=== PATIENT | male | born 2005 | race Caucasian/White ===

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

== ENCOUNTER 2025-07-22 09:00 | Emergency (ER) | payer BC, SELFPAY ==
[2025-07-22] VITALS (8 sets, daily range): BP systolic 97–127; BP diastolic 49–79; BMI 27.3
--- NOTE | 2025-07-22 09:16 | ED.GENMED ---
History of Present Illness
General
Chief Complaint: Seizure
Source: patient and ambulance crew
Exam Limitations: none
Time Seen by Provider: 07/22/25 09:01
Nursing documentation reviewed up to this point in time: agreed with
History of Present Illness
History of Present Illness:
Patient is a 19-year-old male with past medical history of absence seizures presents to the ER via EMS
Mom at bedside reports they heard a loud crash in the bathroom the patient was on the floor of the shower not responding. Mom reports dad and brother carried him into the bedroom.
Patient has a history of absence seizure's and usually will have episodes of staring for about 5 seconds. He last had a seizure in seventh grade he is now a freshman in college. Mom reports no history of grand mal tonic-clonic seizures.
Patient presents awake alert he remembers getting up to his alarm he remembers being in the shower but he does not recall anything after that. He remembers waking up in his bed with his dad and paramedics around him.
He complains of jaw pain and a fat left upper lip.
He admits to not taking his Depakote since he has been in college.
He does drink alcohol socially last drink yesterday. He denies any drug use.
Phy Exam
General Physical Exam
General Presentation: no apparent distress
General age: appears stated age
General Skin: warm and dry
General Habitus: normal
General Mental: alert
General Hydration: dry mucous membranes
ENT Exam
ENT Exam: neck supple, pharyngeal erythema and other (left upper lip swollen , ecchymosis positive abrasion on the inner upper aspect of the left upper lip; no lacerations to lip , no inner - oral lacerations; tender tooth #10; opens mouth fully
mildly tender to b/l mandible )
Eye Exam
Eye Exam: PERRL and EOMI
Eye Exam General: PERRL: bilateral and EOM intact: bilateral
Pupil Exam: Bilateral: round and reactive
Cardiovascular Exam
Cardiovascular Exam: regular rate/rhythm and no murmur
Pulmonary Exam
Pulmonary Exam: lungs clear and no respiratory distress
Neurological Exam
Neurological Exam: alert, oriented x3, no motor deficits and no sensory deficits
Musculoskeletal Exam
Musculoskeletal Exam: full ROM
Skin Exam
Skin Exam: normal color and warm/dry
Psychiatric Exam
Psychiatric Exam: normal mood/affect
Course
Orders/Labs/Results
Orders:
Orders
07/22/25 09:12
CT Cervical Spine W/o Iv Contr Urgent
Comment:
Reason For Exam: trauma
CT Facial Bones W/o Iv Contras Urgent
Comment:
Reason For Exam: trauma
CT Head W/o Iv Contrast Urgent
Comment:
Reason For Exam: trauma
07/22/25 09:13
0.9% Sodium Chloride 1000 ml [Nss] 1,000 ml IV BOLUS
07/22/25 09:26
Complete Blood Count/With Diff Urgent
Comprehensive Metabolic Panel Urgent
Depakane Urgent
07/22/25 10:30
Valproate Sodium [Depacon] 2,000 mg 0.9% Sodium Chloride 50 ml [Nss] 50 ml IV NOW
07/22/25 10:36
Ibuprofen [Motrin] 600 mg PO NOW STA
Abnormal Lab Results
07/22/25
09:26
Abs Immat Gran (auto) 0.4 H 10^3/uL
(0-0.05)
Absolute Monos (auto) 0.7 H 10^3/uL
(0.1-0.6)
Immature Gran % 4.1 H %
(0-0.5)
ALT 73 H U/L
(0-50)
Valproic Acid < 10.0 L ug/ml
(50.0-120.0)
07/22/25 09:26
07/22/25 09:26
Vital Signs
Initial and Last Documented VS:
Initial Vital Signs
Temp Pulse Resp BP Pulse Ox
98.2 F 98 30 127/79 95
07/22/25 09:02 07/22/25 09:02 07/22/25 09:02 07/22/25 09:02 07/22/25 09:02
Last Documented Vital Signs
Temp Pulse Resp BP Pulse Ox
98.2 F 70 25 127/73 98
07/22/25 09:02 07/22/25 14:38 07/22/25 14:38 07/22/25 14:38 07/22/25 14:00
Rotor Winder consulted with Physician
Rotor Winder consulted with physician?: Yes
Name of Physician Consulted: Noh
MDM/Problems Addressed
Differential Diagnosis Includes:
Not limited to seizure, intracranial hemorrhage facial/jaw fracture
MDM/Problems Addressed:
Patient is a 19-year-old male with history of absence seizures presents for evaluation. Patient fell in the shower not responding as parents describe. Likely seizure. Patient is prescribed Depakote however since he has been to college in the past
several months has not taken his medicine. Patient presents with a swollen left upper lip abrasions to his head. He complains of jaw pain. No oral interval lacerations. Patient presents awake alert remembers waking up to his alarm does not
remember anything else. He does admit to drinking alcohol last night. CT head facial bones and cervical spine all negative. Patient was given fluids here in the ER. Case discussed with ED physician. As discussed, patient was given IV loading
dose of Depakote. Patient has prescriptions for Depakote at home. Parents have been here with patient and mother has been in close contact with the nurse practitioner of neurology. She did contact her through the portal and she recommended that
he start Depakote
Back up again however on a lower dose than previously prescribed with increasing dosing.
she did send all instructions to mother.
She also reported the seizure to the department transportation.
Patient did not sleep. He is awake alert .he is up drinking fluids
will ambulate and DC home
Pt ambualted here in the ED very well stable for d/c home
Patient's neurologist at [facility] wrote him prescription for rescue medicine in addition they have a video call appointment in the beginning of August.
Chronic conditions affecting care:
absence seizure history
*Radiology
Radiology exam reviewed: radiology read reviewed
*Pulse Oximetry
SaO2: 95
Oxygen Mode of Delivery: Room air
Patient hypoxic: no
*Critical Care Note
Total Time (30-74mins, 75-104mins- exclusive of procedures): Not Applicable
ED Attending Note
-
Portions of this chart may have been created with voice recognition software.� Occasional wrong word or��sound alike� substitutions may have occurred due to the inherent limitations of voice recognition software.
Discharge Plan
Departure
Patient Disposition: Home (Routine Discharge)
Date of Disposition: 07/22/25
Time of Disposition: 14:59
Patient with high blood pressure during this ER visit?: No
Condition: Fair
Covid-19: Not Applicable
Discharge Problem:
Seizure, Dental injury
Instructions: Seizures, Adult (DC), Dental pain - ED (DC)
Prescriptions:
No Action
divalproex [Depakote] 500 mg Tablet,Delayed Release (Dr/Ec)
1,000 mg PO HS
ibuprofen 200 mg Capsule
400 mg PO Q6H
Referrals:
Tray Gamboa DO [Family Provider, Pediatrics]
Activity Restrictions/Additional Instructions:
Start Depakote tomorrow as recommended by your neurologist. no alcohol. You were sent a prescription for rescue medicine by your neurologist.
Stay well-hydrated. Follow-up with neurology as scheduled and return if any worsening of symptoms
Follow-up with family doctor in the next 2 to 3 days for reevaluation of symptoms as well as dentist for injured tooth.
Ice to the lip /face for the next 24 hours 20 minutes at a time several times a day.
Interventions
Interventions:
*General Assessment Last Done: 07/22/25 09:02
*Neglect/Abuse Screening Last Done: 07/22/25 09:02
*ED COVID-19 Vaccine History Last Done: 07/22/25 09:11
*ED Influenza Vaccine History Last Done: 07/22/25 09:11
[facility] Fall Risk Assessment Tool Last Done: 07/22/25 09:11
*Risk Screen - Suicide (C-SSRS) Last Done: 07/22/25 09:11
ED- Cardiac Assessment Last Done: 07/22/25 09:35
ED- Neurological Assessment Last Done: 07/22/25 09:35
ED- Pulmonary Assessment Last Done: 07/22/25 09:35
Discharge Date and Time
Print Language: HUNGARIAN
[2025-07-22] MEDS: NSS 1000 IV (09:41)
[2025-07-22 09:48] LABS: Hematocrit 44.9 % (39.0-52.0); Hemoglobin 15.8 g/dL (13.0-18.0); Mean Corp Hgb Conc. 35.2 g/dL (33.0-37.0); Mean Corpuscular Volume 80.3 fL (80.0-94.0); Nucleated Red Blood Cells % 0 % (-); Platelet Count 272 10^3/uL (130-400); Red Cell Dist. Width 11.5 % (11.5-14.5)
[2025-07-22 09:50] LABS: ALT (SGPT) 73 U/L (0-50); AST (SGOT) 49 U/L (17-59); Albumin 4.5 g/dl (3.5-5.0); Alkaline Phosphatase 59 U/L (38-126); Blood Urea Nitrogen 12 mg/dl (9-20); Calcium 9.5 mg/dl (8.4-10.2); Carbon Dioxide 26 mmol/L (22-30); Chloride 103 mmol/L (98-107); Estimated Creatinine Clearance > 125 ml/min; Glucose 92 mg/dl (70-99); Potassium 4.1 mmol/L (3.5-5.1); Sodium 138 mmol/L (135-145); Total Protein 8.1 g/dl (6.3-8.2); eGFR > 60.00
[2025-07-22 09:55] LABS: Depakane < 10.0 ug/ml (50.0-120.0)
--- NOTE | 2025-07-22 10:32 | EDRN ---
Pharmacist called to mix and send depakote at this time.
--- NOTE | 2025-07-22 10:33 | EDRN ---
Francia To TSO in w/ pt and brought pt some water to drink at this time.
[2025-07-22] MEDS: MOTRIN 600 MG PO (10:40)
[2025-07-22] MEDS: DEPACON 70 MG IV (10:53)
== END 2025-07-22 14:55 | disposition home or self-care (01) ==
LOC: EMR 09:00
PROVIDERS: Nurse Practitioner; EMERGENCY PHYSICIAN Emergency Medicine; FAMILY PHYSICIAN Pediatrics
DX: S09.93XA Unspecified injury of face, initial encounter (principal); S00.511A Abrasion of lip, initial encounter; S00.531A Contusion of lip, initial encounter; G40.909 Epilepsy, unspecified, not intractable, without status epilepticus; W18.2XXA Fall in (into) shower or empty bathtub, initial encounter; Y93.E1 Activity, personal bathing and showering; Z91.148 Patient's other noncompliance with medication regimen for other reason
CPT/HCPCS: 99284; 96365; 96366; 70450; 70486; 72125; 80053; 80164; 85025